=== PATIENT | female | born 1995 | race Caucasian/White ===

== ENCOUNTER → 2022-09-30 | Outpatient (REF) | payer OTHER ==
[2022-09-30 18:19] LABS: BASO # 0.1 10^3/uL (0.0-0.2); BASO % 1.1 % (0.0-1.0); EOS # 0.1 10^3/uL (0.0-0.5); EOS % 0.8 % (0.0-3.0); HEMATOCRIT 44.8 % (36.0-47.0); HEMOGLOBIN 14.6 g/dl (12.0-15.5); LYMPH % 27.2 % (24.0-44.0); MEAN CORPUSCULAR HEMOGLOBIN 29.8 pg (27.0-33.0); MEAN CORPUSCULAR HGB CONC 32.6 g/dl (32.0-36.5); MEAN CORPUSCULAR VOLUME 91.4 fl (80.0-96.0); MONO # 0.6 10^3/uL (0.0-0.8); NEUTROPHILS # 4.6 10^3/uL (1.5-8.5); NEUTROPHILS % 62.6 % (36.0-66.0); PLATELET COUNT, AUTOMATED 331 10^3/uL (150-450); WHITE BLOOD COUNT 7.3 10^3/uL (4.0-10.0)
[2022-09-30 18:39] LABS: C REACTIVE PROTEIN QUANTITATIV < 0.40 MG/DL (<1.0)
[2022-09-30 18:41] LABS: RHEUMATOID FACTOR QUANT 4.3 IU/ML (<14)
[2022-09-30 18:54] LABS: ERYTHROCYTE SEDIMENTATION RATE 19 mm/hr (0-20)
== END ==
LOC: M LAB REF 17:14
PROVIDERS: ATTEND Physician Assistant
DX: M25.551 Pain in right hip (principal)

== ENCOUNTER → 2022-10-20 | Outpatient (CLI) | payer SELFPAY ==
[~2022-10-20] MED LIST: CYCL5TAB PO
== END ==
LOC: M PLAIMG 11:49
PROVIDERS: ATTEND Physician Assistant
DX: S73.192A Other sprain of left hip, initial encounter (principal); S73.191A Other sprain of right hip, initial encounter; M25.552 Pain in left hip; M25.551 Pain in right hip; Y93.9 Activity, unspecified; Y92.9 Unspecified place or not applicable

== ENCOUNTER → 2024-01-13 | Outpatient (CLI) | payer OTHER ==
[~2024-01-13] MED LIST changes: -CYCL5TAB PO; +CYCL5TAB4 PO
== END ==
LOC: M RAD 12:33
PROVIDERS: ATTEND Physician Assistant Surgical
DX: G89.29 Other chronic pain (principal); M25.562 Pain in left knee